=== PATIENT | male | born 1995 | race Caucasian/White ===

== ENCOUNTER 2021-01-18 17:26 | Emergency (ER) | payer SELFPAY ==
[2021-01-18] MEDS ORDERED: Acetaminophen 325 MG Tab PO ONE (18:33)
--- NOTE | 2021-01-18 18:35 | EDM.PDOC ---
ED HPI GENERAL MEDICAL PROBLEM - General Chief Complaint: Fever Stated Complaint: FEVER SORE THROAT COUGH Time Seen by Provider: 01/18/21 18:02 Source of Information: Reports: Patient History Limitations: Reports: No Limitations - History of Present Illness INITIAL COMMENTS - FREE TEXT/NARRATIVE: 25-year-old male presents the emergency department with complaints of chills, sore throat, headache and generalized body aches that started at about 2 AM this morning. Patient states that prior to this he has been healthy and has no previous medical issues. He states he has not taken any Tylenol or ibuprofen for the discomfort. He states he did take a bath and Epson salt and that did not help. Generalized Pain Score (Numeric/FACES): 5 - Related Data Allergies Allergy/AdvReac Type Severity Reaction Status Date / Time No Known Allergies Allergy Verified 01/18/21 18:08 Home Meds: Home Meds . [No Known Home Meds] 01/18/21 [History] Past Medical History - Past Health History Medical/Surgical History: Denies Medical/Surgical History Social & Family History - Tobacco Use Tobacco Use Status *Q: Current Every Day Tobacco User Years of Tobacco use: 8 Packs/Tins Daily: 1 - Caffeine Use Caffeine Use: Reports: Energy Drinks, Soda - Recreational Drug Use Recreational Drug Use: No ED ROS GENERAL - Review of Systems Review Of Systems: Comprehensive ROS is negative, except as noted in HPI. ED EXAM, GENERAL - Physical Exam Exam: See Below Exam Limited By: No Limitations General Appearance: Alert, WD/WN, No Apparent Distress Ears: Normal External Exam, Hearing Grossly Normal Nose: Normal Inspection Throat/Mouth: Normal Inspection, Normal Lips, Normal Teeth, Normal Gums, Normal Oropharynx, Normal Voice, No Airway Compromise Head: Atraumatic Neck: Normal Inspection, Supple Respiratory/Chest: No Respiratory Distress, Lungs Clear, Normal Breath Sounds, No Accessory Muscle Use, Chest Non-Tender Cardiovascular: Normal Peripheral Pulses, Regular Rate, Rhythm, No Edema, No Murmur Peripheral Pulses: 2+: Radial (L), Radial (R) GI/Abdominal: Normal Bowel Sounds, Soft, Non-Tender, No Distention (Male) Exam: Deferred Rectal (Males) Exam: Deferred Back Exam: Normal Inspection Extremities: Normal Inspection Neurological: Alert, Oriented, Normal Cognition Psychiatric: Normal Affect, Normal Mood Skin Exam: Warm, Dry, Intact, Normal Color, No Rash Lymphatic: No Adenopathy Course - Vital Signs Text/Narrative:: As stated above, patient presents with symptoms that started around 2 AM this morning. At the time of my exam, he is hemodynamically stable. Physical exam is essentially unremarkable. Will obtain a Covid swab on this patient. We will also order Tylenol 975 to treat the generalized body discomfort. Last Recorded V/S: Last Vital Signs Temp 100.0 F 01/18/21 18:53 Pulse 98 01/18/21 18:06 Resp 20 01/18/21 18:06 BP 131/106 H 01/18/21 18:06 Pulse Ox 99 01/18/21 18:06 - Orders/Labs/Meds Labs: Laboratory Tests 01/18/21 Range/Units 18:05 Influenza Type A RNA Negative (NEGATIVE) Influenza Type B RNA Negative (NEGATIVE) SARS-CoV-2 RNA ([facility]) Positive H (NEGATIVE) Meds: Medications Discontinued Medications Generic Name Dose Route Start Last Admin Trade Name Freq PRN Reason Stop Dose Admin Acetaminophen 975 mg 01/18/21 18:33 01/18/21 18:53 Acetaminophen 325 Mg Tab PO 01/18/21 18:34 975 mg NOW ONE Administration - Re-Assessments/Exams Free Text/Narrative Re-Assessment/Exam: 01/18/21 19:03 Influenza a and B are negative however Covid test is positive. Patient will be discharged home with recommendations that he quarantine for the next 10 days. Departure - Departure Time of Disposition: 19:03 Disposition: Home, Self-Care 01 Condition: Good Clinical Impression: COVID - Discharge Information Referrals: PCP,None [Primary Care Provider] - Forms: ED Department Discharge, ED Return to Work/School Form Additional Instructions: You were seen in the emergency department today Covid test was completed and this did come back positive. You did receive 975 mg of Tylenol in the emergency department. Recommend that you go home and get plenty of rest and drink plenty of fluids eat small frequent meals. You will need to quarantine for the next 10 days time. You can take ibuprofen 600 mg alternating with Tylenol 650 mg every 4 hours as needed for body aches and fever. Recommend that in 5 weeks time after symptoms have resolved you receive your Covid vaccinations. Sepsis Event Note (ED) - Focused Exam Vital Signs: Vital Signs Temp Temp Pulse Resp BP Pulse Ox 01/18/21 18:53 100.0 F 01/18/21 18:06 100.3 F 98 20 131/106 H 99
[2021-01-18 18:56] LABS: CORONAVIRUS COVID-19 NAA POSITIVE (NEGATIVE)
== END 2021-01-18 20:00 | disposition home or self-care (01) ==
LOC: JD.ED 17:26
DX: U07.1 COVID-19 (principal); Z72.0 Tobacco use
CPT/HCPCS: 0240U; 99284; A9270

== ENCOUNTER 2021-11-16 18:25 | Emergency (ER) | payer BC ==
[2021-11-16] MEDS ORDERED: HYDROmorphone 1 MG/ML Syringe IVPUSH STA (18:41)
[2021-11-16] MEDS ORDERED: Sodium Chloride 0.9% 10 ML Syringe FLUSH PRN (18:41)
[2021-11-16] MEDS ORDERED: Ondansetron 4 MG/2 ML SDV IVPUSH ONE (18:41)
[2021-11-16] MEDS ORDERED: Acetaminophen/HYDROcodone 325-5 MG Tab PO ONE (19:39)
== END 2021-11-16 20:08 | disposition home or self-care (01) ==
LOC: JD.ED 18:25
DX: S82.61XA Displaced fracture of lateral malleolus of right fibula, initial encounter for closed fracture (principal); Z86.16 Personal history of COVID-19
CPT/HCPCS: 36415; 73610; 80053; 85025; 96374; 96375; 99283; A9270; J1170; J2405; J3490; 99284

== ENCOUNTER 2021-12-13 13:12 | Emergency (ER) | payer BC ==
[2021-12-13] MEDS: Sodium Chloride 0.9% 10 ML Syringe FLUSH PRN ×2 (14:15→14:28)
[2021-12-13] MEDS ORDERED: Iopamidol 755 Mg/ML 100 ML Bottle IVPUSH ONE (14:28)
[2021-12-13] MEDS ORDERED: Sodium Chloride 0.9% 10 ML Syringe FLUSH ONE (14:28)
[2021-12-13] MEDS ORDERED: Sodium Chloride 0.9% 100 ML IV SCH (14:30)
== END 2021-12-13 15:50 | disposition home or self-care (01) ==
LOC: JD.ED 13:12
DX: R04.2 Hemoptysis (principal); J06.9 Acute upper respiratory infection, unspecified; Z79.899 Other long term (current) drug therapy; Z79.82 Long term (current) use of aspirin; Z86.16 Personal history of COVID-19; Z20.822 Contact with and (suspected) exposure to COVID-19
CPT/HCPCS: 36415; 71275; 80053; 85025; 87635; 99284; J3490; Q9967; U0002